=== PATIENT | male | born 1940 | race Caucasian/White ===

== ENCOUNTER → 2020-09-28 13:49 | Outpatient (REF) | payer MEDICARE, SELFPAY ==
--- NOTE | 2020-09-28 14:00 | CA_ITS ---
Transthoracic Echocardiogram Patient (Last, First, Middle): Godwin Santoyo, Gender: Male Date of : 1940 Age: 80 Procedure Date: 09/28/2020 Procedure Type: Transthoracic Echocardiogram Location: OP Height: 160.02 cm Weight: 97.52 kg BSA: 1.99 m2 Heart Rate: bpm BP: 136 / 58 mmHg Human Resources Support Specialist: Referring MD: Yuri Moeller MD Symptoms: R60.0 LOCALIZED EDEMA Study Quality: Fair ECG Rhythm: Sinus Conclusions: - The left ventricular systolic function is normal. The visually estimated ejection fraction is between 55-60%. - No obvious valvular pathology seen on this study. - Mild pulmonary hypertension is present. Findings Procedure Information Contrast agent, definity, is being given per protocol without apparent complications. Left Ventricle Normal left ventricular cavity size. There is mildly increased left ventricular wall thickness. The left ventricular systolic function is normal. The visually estimated ejection fraction is between 55-60%. There is no evidence of regional wall motion abnormalities. E/E prime ratio is between 8 and 15 consistent with indeterminate filling pressures. Evidence suggests grade I (mild) diastolic dysfunction. Right Ventricle Normal right ventricular cavity size and systolic function. Atria The left atrium is normal in size. The right atrium is normal in size. Aortic Valve There is a normal trileaflet aortic valve. There is mild calcification of the aortic valve. There is no aortic valve stenosis. There is no aortic valve regurgitation. Mitral Valve There is mild mitral annular calcification. There is no mitral valve regurgitation. There is no mitral valve stenosis. Pulmonic Valve The pulmonic valve was not well visualized. Tricuspid Valve Normal tricuspid valve structure. There is mild tricuspid valve regurgitation. The right ventricular systolic pressure is 40 mmHg. Mild pulmonary hypertension is present. Great Vessels The aortic annulus, sinuses of valsalva, asc aorta, and aortic arch are normal in size. Venous The inferior vena cava is normal in size and collapses greater than 50% with inspiration. Pericardium/Pleural There is no evidence of pericardial effusion. Prior Study Comparison No prior study available for comparison. Recommendations, Care & Conclusions No obvious valvular pathology seen on this study. Measurements 2D Linear Measurements RVIDd: 4.52 RVIDd Index: 2.27 IVSd: 1.07 0.6-0.9/0.6-1.0 cm LVIDd: 4.56 3.9-5.3/4.2-5.9 cm LVIDd Index: 2.29 2.4-3.2/2.2-3.1 cm/m2 LVIDs: 3.33 2.0-3.6 cm LVPWd: 1.12 0.7-1.1 cm Ao Root: 3.20 2.1-3.5 cm LA Diam: 4.10 2.7-3.8/3.0-4.0 cm LAIDs Index: 2.06 1.5-2.3 cm/m2 LV Mass: 221.24 67-162/88-224 g LV Mass Index: 111.17 43-95/49-115 g/m2 LVOT Diam: 2.00 3.0+(-)1.3 cm Mitral Valve MV Pk E: 0.73 MV PK A: 1.22 MV Decel Time: 228.00 E/A: 0.60 E'Lateral: 6.64 E'Medial: 6.20 E/E' Med: 11.70 E/E' Lat: 11.00 Aortic Valve AoV Pk Sampson: 1.65 AoV Mn Sampson: 1.25 AoV VTI: 0.34 AoV Pk Grad: 11.00 Aov Mn Grad: 7.00 CASEY Cont.VTI: 2.31 LVOT LVOT Pk Sampson: 1.52 LVOT Mn Sampson: 0.93 LVOT VTI: 0.25 LVOT Pk Grad: 9.00 LVOT Mn Grad: 4.00 LVOT Diam: 2.00 LVOT Area: 3.14 Diastolic Function MV Pk E: 0.73 MV Pk A: 1.22 E/A: 0.60 E'Medial: 6.20 E/E' Med: 11.70 E' Laterial: 6.64 E/E' Lat: 11.00 Tricuspid Valve TR Pk Sampson: 3.03 TR Pk Grad: 37.00 RA Press: 3.00 RVSP: 40.00 Great Vessels Aorta Ao Root-2D: 3.20 2.0-3.7 cm Ao Asc: 3.60 2.1-3.4 cm Ao Arch: 2.90 Updated in Other Vendor System with Status of Final Robert Hercules MD electronically signed on 09/29/2020 11:12:03 AM with status of Final
== END ==
LOC: HO.CARD 13:49
PROVIDERS: Visit Provider Internal Medicine
DX: R60.0 Localized edema (principal)
CPT/HCPCS: 93306; Q9957